=== PATIENT | female | born 1985 | race Caucasian/White ===

== ENCOUNTER 2016-12-07 00:44 | Emergency (ER) | payer SELFPAY ==
[~2016-12-07] VITALS: Ht 165.1 cm; Wt 71.7 kg
[2016-12-07 00:50] VITALS: BP 132/76
--- NOTE | 2016-12-07 01:26 | NUR ---
PATIENT LEFT WITHOUT BEING SEEN BY DR. WHITE. NO FURTHER CARE PROVIDED FOR PATIENT.
== END 2016-12-07 01:26 | disposition left against medical advice (07) ==
LOC: MED 00:44
DX: R10.9 Unspecified abdominal pain (principal); R19.7 Diarrhea, unspecified; R11.0 Nausea; Z53.21 Procedure and treatment not carried out due to patient leaving prior to being seen by health care provider